=== PATIENT | male | born 1975 | race African-American/Black ===

== ENCOUNTER 2019-11-03 16:50 | Emergency (ER) | payer BC, MEDICAID ==
[~2019-11-03] VITALS: Ht 165.1 cm; Wt 89.0 kg
[~2019-11-03 16:50] MED LIST: HYDR-519 PO
[2019-11-03] MEDS ORDERED: KETOROLAC 60MG/2ML VIAL IM ONE (18:30)
[2019-11-03] MEDS ORDERED: TETANUS, DIPHTHERIA, PERTUSSIS VAC/PF 0.5ML (>7YR OLD) IM ONE (19:45)
[2019-11-03 20:22] VITALS: BP 120/79
== END 2019-11-03 20:28 | disposition home or self-care (01) ==
LOC: ER 16:50
DX: S51.812A Laceration without foreign body of left forearm, initial encounter (principal); W22.8XXA Striking against or struck by other objects, initial encounter; Y93.89 Activity, other specified; Y92.89 Other specified places as the place of occurrence of the external cause; Y99.8 Other external cause status; Z98.890 Other specified postprocedural states
CPT/HCPCS: 12001; 73090; 90471; 90715; 96372; 99284; J1885

== ENCOUNTER 2020-03-23 13:34 | Emergency (ER) | payer BC ==
[~2020-03-23] VITALS: Ht 170.2 cm; Wt 84.0 kg
[2020-03-23] MEDS ORDERED: IBUPROFEN 800MG TABLET PO ONE (16:15)
[2020-03-23 18:42] VITALS: BP 117/79
== END 2020-03-23 18:45 | disposition home or self-care (01) ==
LOC: ER 13:34
DX: S92.211A Displaced fracture of cuboid bone of right foot, initial encounter for closed fracture (principal); W22.8XXA Striking against or struck by other objects, initial encounter; Y93.55 Activity, bike riding; Y92.89 Other specified places as the place of occurrence of the external cause
CPT/HCPCS: 73610; 73630; 99284

== ENCOUNTER 2020-04-02 21:44 | Emergency (ER) | payer BC ==
[~2020-04-02] VITALS: Ht 165.1 cm; Wt 90.0 kg
[2020-04-02 22:20] VITALS: BP 119/82
== END 2020-04-02 22:46 | disposition home or self-care (01) ==
LOC: ER 21:44
DX: Z04.89 Encounter for examination and observation for other specified reasons (principal); Z87.81 Personal history of (healed) traumatic fracture
CPT/HCPCS: 99281

== ENCOUNTER 2020-08-09 10:27 | Emergency (ER) | payer BC ==
[~2020-08-09] VITALS: Ht 175.3 cm; Wt 77.0 kg
[2020-08-09] MEDS ORDERED: IBUPROFEN 600MG TABLET PO STA (10:40)
[2020-08-09] MEDS ORDERED: NAPR-681 PO (11:42)
[2020-08-09] MEDS ORDERED: CYCL25PO21 PO (11:42)
[2020-08-09 11:51] VITALS: BP 138/87
== END 2020-08-09 11:52 | disposition home or self-care (01) ==
LOC: ER 10:27
DX: M25.532 Pain in left wrist (principal); M79.622 Pain in left upper arm; M54.9 Dorsalgia, unspecified; W01.0XXA Fall on same level from slipping, tripping and stumbling without subsequent striking against object, initial encounter; Y93.89 Activity, other specified; Y92.89 Other specified places as the place of occurrence of the external cause; Y99.8 Other external cause status
CPT/HCPCS: 71045; 73080; 73110; 99284